=== PATIENT | female | born 1945 | race Caucasian/White ===

== ENCOUNTER 2022-11-15 16:14 | Inpatient (IN) | payer MEDICARE ==
[~2022-11-15] VITALS: Ht 160 cm; Wt 106.1 kg
[~2022-11-15 16:14] MED LIST: ACETAMINOPHEN325 M1 PO; ASPIR 8181 MG PO; ATORVASTATIN CA20 MG PO; CARAFATE1 GM PO; DOXAZOSIN MESYLA2 MG PO; ELIQUIS5 MG PO; FAMOTIDINE40 MG PO; FLONASE ALLERG9.9 ML INH; FUROSEMIDE40 MG PO; HEMOCYTE PLUS1 EACH PO; HYDROCHLOROTHIA25 MG; HYZAAR 100-251 EACH PO; ISOSORBIDE MONO30 MG PO; LASIX40 MG PO; LEVOCETIRIZINE D5 MG PO; LEVOTHYROXINE88 MCG PO; LOSARTAN POTAS100 MG PO; MAGOX 400400 MG PO; MAXZIDE 37.5 M1 EACH PO; METOPROLOL SUCC50 MG PO; PANTOPRAZOLE SO40 MG PO; SENOKOT-S TABL1 EACH PO; SYNTHROID125 MCG PO; TOPROL XL100 MG PO; VITAMIN D350 MCG PO
[2022-11-15] MEDS ORDERED: ALBUTEROL/IPRATROPIUM 3 ML NEB NEB ONE (17:00)
[2022-11-15 17:14] LABS: BASOPHILS # (AUTO) 0.1 (0.0-0.1); BASOPHILS % 0.3 % (0.0-1.0); EOSINOPHILS # (AUTO) 0.1 (0.0-0.4); EOSINOPHILS % 0.4 % (0.0-6.0); HEMOGLOBIN 10.8 g/dL (12.0-16.0); LYMPHOCYTES # (AUTO) 0.5 (1.0-3.2); LYMPHOCYTES % 1.9 % (18.0-39.1); MEAN CORPUSCULAR HEMOGLOBIN 25.9 pg (28-32); MEAN CORPUSCULAR HGB CONC 30.9 g/dL (31-35); MEAN CORPUSCULAR VOLUME 83.9 fL (81-99); MONOCYTES # (AUTO) 0.8 (0.2-0.8); NEUTROPHILS # (AUTO) 25.1 (2.1-6.9); NEUTROPHILS % 93.9 % (38.7-80.0); PLATELET COUNT 335 x10e3/uL (140-360); RED BLOOD COUNT 4.17 x10e6/uL (3.6-5.1); RED CELL DISTRIBUTION WIDTH 19.5 % (11.7-14.4)
[2022-11-15 17:49] LABS: ALBUMIN 2.5 g/dL (3.5-5.0); ALBUMIN/GLOBULIN RATIO 0.5 (0.8-2.0); ANION GAP 22.3 mmol/L (8-16); CREATININE, SERUM 1.41 mg/dL (0.57-1.11); POTASSIUM 4.3 mmol/L (3.5-5.1)
[2022-11-15 17:50] LABS: CALCIUM 9.7 mg/dL (8.4-10.2)
[2022-11-15] MEDS ORDERED: SODIUM CHLORIDE 0.9% 1000ML 500 ML IV ONE (19:00)
[2022-11-15] MEDS ORDERED: SODIUM CHLORIDE FLUSH 10 ML SYR INJ PRN (19:15)
[2022-11-15] MEDS ORDERED: METHYLPREDNISOLONE SOD SUCC 125 MG/2ML VIAL IV SCH (19:15)
[2022-11-15] MEDS ORDERED: ONDANSETRON HCL INJ 2MG/ML 2ML 2 MG/ML VIAL IV PRN (19:15)
[2022-11-15] MEDS ORDERED: DEXTROSE 50% SYRINGE 50 ML IV PRN (19:30)
[2022-11-15] MEDS ORDERED: IBUPROFEN 600 MG TAB PO STA (19:53)
[2022-11-15] MEDS ORDERED: PANTOPRAZOLE SOD 40 MG TABEC PO ONE (20:30)
[2022-11-15 20:53] LABS: ABG PH 7.43 (7.35-7.45)
[2022-11-15] MEDS: INSULIN REGULAR, HUMAN 100 UNIT/1 ML SQ SCH (20:53)
[2022-11-15 20:54] LABS: ABG HCO3 26 mmol/L (22-26); ABG PCO2 39 mmHg (35-45); ABG PO2 67 mmHg (80-105); ABG TCO2 27
[2022-11-15] MEDS: ATORVASTATIN 40 MG TAB PO SCH (21:00)
[2022-11-15] MEDS ORDERED: IPRATROPIUM BROMIDE 0.02% 2.5 ML NEB NEB SCH (21:00)
[2022-11-15] MEDS ORDERED: ALBUTEROL/IPRATROPIUM 3 ML NEB NEB SCH (23:00)
[2022-11-15 23:48] LABS: CLARITY,URINE CLOUDY (CLEAR); COLOR,URINE AMBER (YELLOW); KETONES,URINE TRACE (NEGATIVE); LEUKOCYTE ESTERASE ,URINE SMALL (NEGATIVE); NITRITE,URINE POSITIVE (NEGATIVE); PROTEIN,URINE DIPSTICK 2+ (NEGATIVE); URINE UROBILINOGEN 1 mg/dL (0.2 - 1)
[2022-11-15 23:53] LABS: BACTERIA,URINE MODERATE /HPF; EPITHELIAL CELLS,URINE MANY /LPF
[2022-11-16] MEDS: ALBUTEROL SULF 0.083% NEB SOLN 3 ML NEB NEB SCH ×7 (00:07→23:00)
[2022-11-16] MEDS: IPRATROPIUM BROMIDE 0.02% 2.5 ML NEB NEB SCH ×7 (00:07→23:00)
[2022-11-16] MEDS ORDERED: Vancomycin IV 0.75 GM in SODIUM CHLORIDE 0.9% 250ML 250 ML IV ONE (01:00)
[2022-11-16 05:49] LABS: BASOPHILS # (AUTO) 0.1 (0.0-0.1); BASOPHILS % 0.3 % (0.0-1.0); HEMATOCRIT 32.9 % (34.2-44.1); HEMOGLOBIN 10.2 g/dL (12.0-16.0); LYMPHOCYTES # (AUTO) 0.5 (1.0-3.2); MEAN CORPUSCULAR HEMOGLOBIN 25.6 pg (28-32); MEAN CORPUSCULAR VOLUME 82.7 fL (81-99); MONOCYTES # (AUTO) 0.4 (0.2-0.8); MONOCYTES % 1.7 % (4.4-11.3); NEUTROPHILS # (AUTO) 22.4 (2.1-6.9); NEUTROPHILS % 95.4 % (38.7-80.0); PLATELET COUNT 316 x10e3/uL (140-360); RED BLOOD COUNT 3.98 x10e6/uL (3.6-5.1); RED CELL DISTRIBUTION WIDTH 19.4 % (11.7-14.4)
[2022-11-16] MEDS: METHYLPREDNISOLONE SOD SUCC 40 MG/ML VIAL 1ML IV SCH ×2 (05:54→17:28)
[2022-11-16] MEDS ORDERED: METHYLPREDNISOLONE SOD SUCC 125 MG/2ML VIAL IV SCH (06:00)
[2022-11-16 06:14] LABS: ANION GAP 20.9 mmol/L (8-16); CALCIUM 9.6 mg/dL (8.4-10.2); CREATININE, SERUM 1.46 mg/dL (0.57-1.11); POTASSIUM 3.9 mmol/L (3.5-5.1)
[2022-11-16] MEDS ORDERED: PANTOPRAZOLE SOD 40 MG TABEC PO SCH (07:30)
[2022-11-16] MEDS: INSULIN REGULAR, HUMAN 100 UNIT/1 ML SQ SCH ×4 (07:30→22:34)
[2022-11-16 07:59] LABS: ANISOCYTOSIS MODERATE; BAND NEUTROPHILS % (MANUAL) 7 %; HYPOCHROMASIA SLIGHT; LYMPHOCYTES % (MANUAL) 1 % (19-48); MONOCYTES % (MANUAL) 1 % (3.4-9.0); NEUTROPHILS % (MANUAL) 91 % (40-74); PLATELET ESTIMATE ADEQUATE; PLATELET MORPHOLOGY COMMENT NORMAL; RBC MORPHOLOGY COMMENT ABNORMAL
[2022-11-16] MEDS: PIPERACILLIN/TAZOBACTAM 4.5 GM in SODIUM CHLORIDE 0.9% 100 ML IV SCH ×2 (09:06→22:14)
[2022-11-16] MEDS: MAGNESIUM OXIDE 400 MG TAB PO SCH ×2 (09:08→17:27)
[2022-11-16] MEDS ORDERED: ELIQUIS5 MG PO (09:10)
[2022-11-16] MEDS: ISOSORBIDE MONONITRATE 30 MG TAB CR PO SCH (09:12)
[2022-11-16] MEDS: DOXAZOSIN MESYLATE 2 MG TAB PO SCH (09:12)
[2022-11-16] MEDS: FUROSEMIDE 40 MG TAB PO SCH (09:13)
[2022-11-16] MEDS: METOPROLOL SUCCINATE 25 MG TAB XL PO SCH ×2 (09:14→17:27)
[2022-11-16] MEDS: LEVOTHYROXINE SODIUM 100 MCG TAB PO SCH (09:14)
[2022-11-16] MEDS: PANTOPRAZOLE SOD 40 MG TABEC PO SCH ×2 (09:14→17:26)
[2022-11-16] MEDS ORDERED: Vancomycin IV 500 MG in SODIUM CHLORIDE 0.9% 100 ML IV SCH (14:00)
[2022-11-16 15:51] VITALS: BP 134/70
[2022-11-16] MEDS ORDERED: SODIUM CHLORIDE 0.9% 0 ML ONE (15:58)
[2022-11-16] MEDS ORDERED: METOPROLOL TARTRATE INJ 1 MG/ML VIAL IV ONE (16:00)
[2022-11-16 16:20] VITALS: BP 134/70
[2022-11-16] MEDS: ENOXAPARIN 30 MG/0.3 ML SYR SC SCH (17:28)
[2022-11-16] MEDS: Vancomycin IV 500 MG in SODIUM CHLORIDE 0.9% 100 ML IV SCH (17:40)
[2022-11-16 18:00] VITALS: BP 134/70
[2022-11-16 20:00] VITALS: BP 118/70
[2022-11-16 21:00] VITALS: BP 118/70
[2022-11-16] MEDS: ATORVASTATIN 40 MG TAB PO SCH (22:15)
[2022-11-17] VITALS (8 sets, daily range): BP systolic 108–133; BP diastolic 56–62
[2022-11-17] MEDS: ALBUTEROL SULF 0.083% NEB SOLN 3 ML NEB NEB SCH ×6 (03:25→23:20)
[2022-11-17] MEDS: IPRATROPIUM BROMIDE 0.02% 2.5 ML NEB NEB SCH ×6 (03:25→23:25)
[2022-11-17] MEDS: METHYLPREDNISOLONE SOD SUCC 40 MG/ML VIAL 1ML IV SCH (05:18)
[2022-11-17] MEDS: Vancomycin IV 500 MG in SODIUM CHLORIDE 0.9% 100 ML IV SCH ×2 (05:22→18:34)
[2022-11-17 06:07] LABS: BASOPHILS % 0.2 % (0.0-1.0); EOSINOPHILS % 0.2 % (0.0-6.0); HEMATOCRIT 27.6 % (34.2-44.1); HEMOGLOBIN 8.9 g/dL (12.0-16.0); LYMPHOCYTES # (AUTO) 0.6 (1.0-3.2); LYMPHOCYTES % 2.8 % (18.0-39.1); MEAN CORPUSCULAR HEMOGLOBIN 25.6 pg (28-32); MEAN CORPUSCULAR HGB CONC 32.2 g/dL (31-35); MEAN CORPUSCULAR VOLUME 79.3 fL (81-99); MONOCYTES # (AUTO) 0.7 (0.2-0.8); MONOCYTES % 3.3 % (4.4-11.3); NEUTROPHILS # (AUTO) 18.3 (2.1-6.9); NEUTROPHILS % 91.8 % (38.7-80.0); PLATELET COUNT 284 x10e3/uL (140-360); RED BLOOD COUNT 3.48 x10e6/uL (3.6-5.1)
[2022-11-17 06:51] LABS: ALBUMIN/GLOBULIN RATIO 0.5 (0.8-2.0); ANION GAP 15.2 mmol/L (8-16); CALCIUM 9.2 mg/dL (8.4-10.2); CREATININE, SERUM 1.18 mg/dL (0.57-1.11); POTASSIUM 3.2 mmol/L (3.5-5.1)
[2022-11-17] MEDS: INSULIN REGULAR, HUMAN 100 UNIT/1 ML SQ SCH ×4 (07:30→21:53)
[2022-11-17 08:17] LABS: ANISOCYTOSIS MODERATE; BAND NEUTROPHILS % (MANUAL) 1 %; HYPOCHROMASIA SLIGHT; LYMPHOCYTES % (MANUAL) 1 % (19-48); METAMYELOCYTES % (MANUAL) 2 % (0-0); MONOCYTES % (MANUAL) 2 % (3.4-9.0); MYELOCYTES % (MANUAL) 1 % (0-0); NEUTROPHILS % (MANUAL) 92 % (40-74); PLATELET ESTIMATE ADEQUATE; PLATELET MORPHOLOGY COMMENT NORMAL; RBC MORPHOLOGY COMMENT ABNORMAL
[2022-11-17] MEDS: PANTOPRAZOLE SOD 40 MG TABEC PO SCH ×2 (10:10→18:35)
[2022-11-17] MEDS: PIPERACILLIN/TAZOBACTAM 4.5 GM in SODIUM CHLORIDE 0.9% 100 ML IV SCH ×2 (10:10→21:17)
[2022-11-17] MEDS: ISOSORBIDE MONONITRATE 30 MG TAB CR PO SCH (10:10)
[2022-11-17] MEDS: LEVOTHYROXINE SODIUM 100 MCG TAB PO SCH (10:10)
[2022-11-17] MEDS: FUROSEMIDE 40 MG TAB PO SCH (10:11)
[2022-11-17] MEDS: DOXAZOSIN MESYLATE 2 MG TAB PO SCH (10:11)
[2022-11-17] MEDS: METOPROLOL SUCCINATE 25 MG TAB XL PO SCH ×2 (10:11→18:35)
[2022-11-17 10:12] LABS: % IRON SATURATION 5 % (15-50); IRON 12 ug/dL (50-170); TOTAL IRON BINDING CAPACITY 246 ug/dL (261-478); TRANSFERRIN 176 mg/dL (180-382)
[2022-11-17] MEDS: MAGNESIUM OXIDE 400 MG TAB PO SCH ×2 (10:12→18:35)
[2022-11-17] MEDS: NYSTATIN SUSPENSION 5 ML UDC PO SCH ×3 (13:25→21:09)
[2022-11-17] MEDS ORDERED: ONDANSETRON HCL 4 MG ORAL DISINTEGRATING TAB PO PRN (13:45)
[2022-11-17] MEDS ORDERED: FUROSEMIDE INJ 10 MG/ML 2 ML VIAL IV ONE (16:00)
[2022-11-17] MEDS: IRON SUCROSE 100 MG in SODIUM CHLORIDE 0.9% 100 ML IV SCH (18:34)
[2022-11-17] MEDS: ENOXAPARIN 30 MG/0.3 ML SYR SC SCH (18:36)
[2022-11-17] MEDS ORDERED: FUROSEMIDE INJ 10 MG/ML 4 ML VIAL IV ONE (19:30)
[2022-11-17] MEDS: ATORVASTATIN 40 MG TAB PO SCH (21:09)
[2022-11-17] MEDS: MAALOX/LIDOCAINE/BENADRYL/NYST 30 ML BTL PO PRN (21:14)
[2022-11-17] MEDS ORDERED: SODIUM CHLORIDE 0.9% 250ML 250 ML ONE (21:54)
[2022-11-18] VITALS (7 sets, daily range): BP systolic 114–149; BP diastolic 53–80
[2022-11-18] MEDS: ALBUTEROL SULF 0.083% NEB SOLN 3 ML NEB NEB SCH ×6 (03:20→23:30)
[2022-11-18] MEDS: IPRATROPIUM BROMIDE 0.02% 2.5 ML NEB NEB SCH ×6 (03:20→23:30)
[2022-11-18] MEDS: NYSTATIN SUSPENSION 5 ML UDC PO SCH ×5 (05:39→20:53)
[2022-11-18] MEDS: Vancomycin IV 500 MG in SODIUM CHLORIDE 0.9% 100 ML IV SCH ×2 (05:41→17:55)
[2022-11-18 06:34] LABS: BASOPHILS # (AUTO) 0.2 (0.0-0.1); BASOPHILS % 0.9 % (0.0-1.0); EOSINOPHILS # (AUTO) 0.1 (0.0-0.4); EOSINOPHILS % 0.3 % (0.0-6.0); HEMATOCRIT 29.3 % (34.2-44.1); HEMOGLOBIN 9.3 g/dL (12.0-16.0); LYMPHOCYTES # (AUTO) 0.4 (1.0-3.2); LYMPHOCYTES % 2.1 % (18.0-39.1); MEAN CORPUSCULAR HEMOGLOBIN 25.7 pg (28-32); MEAN CORPUSCULAR HGB CONC 31.7 g/dL (31-35); MEAN CORPUSCULAR VOLUME 80.9 fL (81-99); MONOCYTES # (AUTO) 0.9 (0.2-0.8); MONOCYTES % 4.2 % (4.4-11.3); NEUTROPHILS # (AUTO) 17.6 (2.1-6.9); NEUTROPHILS % 85.5 % (38.7-80.0); PLATELET COUNT 254 x10e3/uL (140-360); RED BLOOD COUNT 3.62 x10e6/uL (3.6-5.1); RED CELL DISTRIBUTION WIDTH 19.1 % (11.7-14.4)
[2022-11-18 07:21] LABS: ALBUMIN 2.1 g/dL (3.5-5.0); ALBUMIN/GLOBULIN RATIO 0.5 (0.8-2.0); ANION GAP 16.5 mmol/L (8-16); CALCIUM 8.9 mg/dL (8.4-10.2); MAGNESIUM 1.6 MG/DL (1.3-2.1)
[2022-11-18] MEDS: INSULIN REGULAR, HUMAN 100 UNIT/1 ML SQ SCH ×4 (07:30→21:15)
[2022-11-18 07:31] LABS: POTASSIUM 2.5 mmol/L (3.5-5.1)
[2022-11-18 08:48] LABS: LYMPHOCYTES % (MANUAL) 2 % (19-48); MONOCYTES % (MANUAL) 2 % (3.4-9.0); MYELOCYTES % (MANUAL) 2 % (0-0); NEUTROPHILS % (MANUAL) 94 % (40-74); PLATELET ESTIMATE ADEQUATE; PLATELET MORPHOLOGY COMMENT NORMAL; RBC MORPHOLOGY COMMENT NORMAL
[2022-11-18] MEDS ORDERED: POTASSIUM CHLORIDE 20 MEQ TAB CR PO ONE (09:00)
[2022-11-18 09:02] LABS: ABG PCO2 38 mmHg (35-45); ABG PH 7.56 (7.35-7.45)
[2022-11-18 09:03] LABS: ABG HCO3 34 mmol/L (22-26); ABG PO2 66 mmHg (80-105); ABG TCO2 35
[2022-11-18] MEDS ORDERED: MAGNESIUM SULFATE 2GM/50ML 50 ML IV ONE (10:00)
[2022-11-18] MEDS: METHYLPREDNISOLONE SOD SUCC 40 MG/ML VIAL 1ML IV SCH (10:55)
[2022-11-18] MEDS: FUROSEMIDE INJ 10 MG/ML 4 ML VIAL IV SCH ×2 (10:56→17:53)
[2022-11-18] MEDS: PIPERACILLIN/TAZOBACTAM 4.5 GM in SODIUM CHLORIDE 0.9% 100 ML IV SCH ×2 (10:58→23:00)
[2022-11-18] MEDS: POTASSIUM CHLORIDE 20MEQ/100ML 100 ML IV SCH ×2 (10:58→11:10)
[2022-11-18] MEDS: LEVOTHYROXINE SODIUM 100 MCG TAB PO SCH (10:59)
[2022-11-18] MEDS: ISOSORBIDE MONONITRATE 30 MG TAB CR PO SCH (10:59)
[2022-11-18] MEDS: METOPROLOL SUCCINATE 25 MG TAB XL PO SCH (11:00)
[2022-11-18] MEDS: PANTOPRAZOLE SOD 40 MG TABEC PO SCH ×2 (11:00→17:53)
[2022-11-18] MEDS: MAGNESIUM OXIDE 400 MG TAB PO SCH ×2 (11:00→17:53)
[2022-11-18] MEDS: DOXAZOSIN MESYLATE 2 MG TAB PO SCH (11:01)
[2022-11-18 17:31] LABS: ANION GAP 17.3 mmol/L (8-16); CALCIUM 9.1 mg/dL (8.4-10.2); CREATININE, SERUM 0.98 mg/dL (0.57-1.11); POTASSIUM 3.3 mmol/L (3.5-5.1)
[2022-11-18] MEDS: ENOXAPARIN 30 MG/0.3 ML SYR SC SCH (17:53)
[2022-11-18] MEDS: IRON SUCROSE 100 MG in SODIUM CHLORIDE 0.9% 100 ML IV SCH (17:54)
[2022-11-18] MEDS ORDERED: SODIUM CHLORIDE 0.9% 250ML 250 ML ONE (19:14)
[2022-11-18] MEDS: ATORVASTATIN 40 MG TAB PO SCH (20:53)
[2022-11-19] MEDS: IPRATROPIUM BROMIDE 0.02% 2.5 ML NEB NEB SCH ×6 (03:30→23:00)
[2022-11-19] MEDS: ALBUTEROL SULF 0.083% NEB SOLN 3 ML NEB NEB SCH ×6 (03:30→23:00)
[2022-11-19] MEDS: NYSTATIN SUSPENSION 5 ML UDC PO SCH ×5 (06:09→21:40)
[2022-11-19] MEDS: Vancomycin IV 500 MG in SODIUM CHLORIDE 0.9% 100 ML IV SCH (06:09)
[2022-11-19 07:22] LABS: ANION GAP 14.3 mmol/L (8-16); CALCIUM 8.8 mg/dL (8.4-10.2); CREATININE, SERUM 0.96 mg/dL (0.57-1.11); POTASSIUM 3.3 mmol/L (3.5-5.1)
[2022-11-19] MEDS: INSULIN REGULAR, HUMAN 100 UNIT/1 ML SQ SCH ×4 (07:30→21:37)
[2022-11-19] MEDS ORDERED: POTASSIUM CHLORIDE 20 MEQ TAB CR PO ONE (07:45)
[2022-11-19 08:00] VITALS: BP 145/70
[2022-11-19 08:24] VITALS: BP 139/75
[2022-11-19] MEDS: FUROSEMIDE INJ 10 MG/ML 4 ML VIAL IV SCH ×2 (08:43→17:25)
[2022-11-19] MEDS: METHYLPREDNISOLONE SOD SUCC 40 MG/ML VIAL 1ML IV SCH (08:44)
[2022-11-19] MEDS: APIXABAN 5 MG TABLET PO SCH ×2 (08:45→17:24)
[2022-11-19] MEDS: MAGNESIUM OXIDE 400 MG TAB PO SCH ×2 (08:45→17:24)
[2022-11-19] MEDS: LEVOTHYROXINE SODIUM 100 MCG TAB PO SCH (08:45)
[2022-11-19] MEDS: METOPROLOL SUCCINATE 25 MG TAB XL PO SCH ×2 (08:46→21:40)
[2022-11-19] MEDS: PANTOPRAZOLE SOD 40 MG TABEC PO SCH ×2 (08:46→17:24)
[2022-11-19] MEDS: ISOSORBIDE MONONITRATE 30 MG TAB CR PO SCH (08:47)
[2022-11-19] MEDS: DOXAZOSIN MESYLATE 2 MG TAB PO SCH (08:47)
[2022-11-19] MEDS: PIPERACILLIN/TAZOBACTAM 4.5 GM in SODIUM CHLORIDE 0.9% 100 ML IV SCH ×2 (09:00→21:40)
[2022-11-19 12:01] VITALS: BP 145/70
[2022-11-19] MEDS: ACETAMINOPHEN 325 MG TAB PO PRN (12:20)
[2022-11-19 16:30] VITALS: BP 126/74
[2022-11-19] MEDS: IRON SUCROSE 100 MG in SODIUM CHLORIDE 0.9% 100 ML IV SCH (17:25)
[2022-11-19 20:55] VITALS: BP 115/55
[2022-11-19 21:00] VITALS: BP 115/55
[2022-11-19] MEDS: ATORVASTATIN 40 MG TAB PO SCH (21:40)
[2022-11-19] MEDS ORDERED: SODIUM CHLORIDE 0.9% 250ML 250 ML ONE (21:45)
[2022-11-20] VITALS (8 sets, daily range): BP systolic 108–144; BP diastolic 63–84
[2022-11-20] MEDS: ALBUTEROL SULF 0.083% NEB SOLN 3 ML NEB NEB SCH ×6 (03:00→22:00)
[2022-11-20] MEDS: IPRATROPIUM BROMIDE 0.02% 2.5 ML NEB NEB SCH ×6 (03:00→22:00)
[2022-11-20] MEDS: NYSTATIN SUSPENSION 5 ML UDC PO SCH ×5 (05:20→21:12)
[2022-11-20 07:12] LABS: BASOPHILS # (AUTO) 0.2 (0.0-0.1); BASOPHILS % 0.9 % (0.0-1.0); HEMATOCRIT 31.3 % (34.2-44.1); HEMOGLOBIN 9.9 g/dL (12.0-16.0); LYMPHOCYTES # (AUTO) 0.8 (1.0-3.2); LYMPHOCYTES % 3.9 % (18.0-39.1); MEAN CORPUSCULAR HEMOGLOBIN 25.6 pg (28-32); MEAN CORPUSCULAR HGB CONC 31.6 g/dL (31-35); MEAN CORPUSCULAR VOLUME 80.9 fL (81-99); MONOCYTES # (AUTO) 0.5 (0.2-0.8); MONOCYTES % 2.5 % (4.4-11.3); NEUTROPHILS # (AUTO) 16.1 (2.1-6.9); NEUTROPHILS % 79.9 % (38.7-80.0); PLATELET COUNT 273 x10e3/uL (140-360); RED BLOOD COUNT 3.87 x10e6/uL (3.6-5.1); RED CELL DISTRIBUTION WIDTH 19.1 % (11.7-14.4)
[2022-11-20] MEDS: INSULIN REGULAR, HUMAN 100 UNIT/1 ML SQ SCH ×4 (07:30→21:00)
[2022-11-20 07:40] LABS: ANION GAP 17.3 mmol/L (8-16); CALCIUM 9.3 mg/dL (8.4-10.2); CREATININE, SERUM 0.99 mg/dL (0.57-1.11); POTASSIUM 3.3 mmol/L (3.5-5.1)
[2022-11-20] MEDS: DOXAZOSIN MESYLATE 2 MG TAB PO SCH (09:58)
[2022-11-20] MEDS: APIXABAN 5 MG TABLET PO SCH ×2 (09:58→16:38)
[2022-11-20] MEDS: PANTOPRAZOLE SOD 40 MG TABEC PO SCH ×2 (09:58→16:38)
[2022-11-20] MEDS: METOPROLOL SUCCINATE 25 MG TAB XL PO SCH ×2 (09:58→21:13)
[2022-11-20] MEDS: MAGNESIUM OXIDE 400 MG TAB PO SCH ×2 (09:59→16:48)
[2022-11-20] MEDS: ISOSORBIDE MONONITRATE 30 MG TAB CR PO SCH (09:59)
[2022-11-20] MEDS: FUROSEMIDE INJ 10 MG/ML 4 ML VIAL IV SCH ×2 (09:59→16:38)
[2022-11-20] MEDS: LEVOTHYROXINE SODIUM 100 MCG TAB PO SCH (10:03)
[2022-11-20 11:50] LABS: LYMPHOCYTES % (MANUAL) 1 % (19-48); METAMYELOCYTES % (MANUAL) 2 % (0-0); MONOCYTES % (MANUAL) 5 % (3.4-9.0); MYELOCYTES % (MANUAL) 1 % (0-0); NEUTROPHILS % (MANUAL) 91 % (40-74); PLATELET ESTIMATE ADEQUATE; PLATELET MORPHOLOGY COMMENT NORMAL; RBC MORPHOLOGY COMMENT NORMAL
[2022-11-20] MEDS: PIPERACILLIN/TAZOBACTAM 4.5 GM in SODIUM CHLORIDE 0.9% 100 ML IV SCH ×2 (11:54→21:12)
[2022-11-20] MEDS: MAALOX/LIDOCAINE/BENADRYL/NYST 30 ML BTL PO PRN (16:46)
[2022-11-20] MEDS: POTASSIUM CHLORIDE 20 MEQ TAB CR PO PRN (16:48)
[2022-11-20] MEDS: TRAMADOL HCL 50 MG TAB PO PRN (18:47)
[2022-11-20] MEDS: ATORVASTATIN 40 MG TAB PO SCH (21:12)
[2022-11-21] VITALS (7 sets, daily range): BP systolic 106–136; BP diastolic 47–62
[2022-11-21] MEDS: TRAMADOL HCL 50 MG TAB PO PRN ×2 (01:00→20:49)
[2022-11-21] MEDS: IPRATROPIUM BROMIDE 0.02% 2.5 ML NEB NEB SCH ×6 (02:30→23:25)
[2022-11-21] MEDS: ALBUTEROL SULF 0.083% NEB SOLN 3 ML NEB NEB SCH ×6 (02:30→23:25)
[2022-11-21] MEDS: NYSTATIN SUSPENSION 5 ML UDC PO SCH ×5 (05:29→20:47)
[2022-11-21] MEDS: LEVOTHYROXINE SODIUM 100 MCG TAB PO SCH (05:29)
[2022-11-21 06:24] LABS: BASOPHILS # (AUTO) 0.1 (0.0-0.1); BASOPHILS % 0.6 % (0.0-1.0); EOSINOPHILS # (AUTO) 0.1 (0.0-0.4); EOSINOPHILS % 0.5 % (0.0-6.0); HEMATOCRIT 29.6 % (34.2-44.1); LYMPHOCYTES # (AUTO) 0.9 (1.0-3.2); LYMPHOCYTES % 5.2 % (18.0-39.1); MEAN CORPUSCULAR HEMOGLOBIN 25.1 pg (28-32); MEAN CORPUSCULAR HGB CONC 30.4 g/dL (31-35); MEAN CORPUSCULAR VOLUME 82.5 fL (81-99); MONOCYTES # (AUTO) 0.4 (0.2-0.8); MONOCYTES % 2.3 % (4.4-11.3); NEUTROPHILS # (AUTO) 12.8 (2.1-6.9); NEUTROPHILS % 77.9 % (38.7-80.0); PLATELET COUNT 252 x10e3/uL (140-360); RED BLOOD COUNT 3.59 x10e6/uL (3.6-5.1); RED CELL DISTRIBUTION WIDTH 19.3 % (11.7-14.4)
[2022-11-21 06:41] LABS: ALBUMIN 2.1 g/dL (3.5-5.0); ALBUMIN/GLOBULIN RATIO 0.5 (0.8-2.0); ANION GAP 15.2 mmol/L (8-16); CALCIUM 8.9 mg/dL (8.4-10.2); CREATININE, SERUM 0.93 mg/dL (0.57-1.11); POTASSIUM 3.2 mmol/L (3.5-5.1)
[2022-11-21] MEDS: INSULIN REGULAR, HUMAN 100 UNIT/1 ML SQ SCH ×4 (07:30→21:18)
[2022-11-21] MEDS: METOPROLOL SUCCINATE 25 MG TAB XL PO SCH ×2 (08:47→20:48)
[2022-11-21] MEDS: FUROSEMIDE INJ 10 MG/ML 4 ML VIAL IV SCH ×2 (08:47→16:29)
[2022-11-21] MEDS: MAGNESIUM OXIDE 400 MG TAB PO SCH ×2 (08:48→16:29)
[2022-11-21] MEDS: ISOSORBIDE MONONITRATE 30 MG TAB CR PO SCH (08:48)
[2022-11-21] MEDS: DOXAZOSIN MESYLATE 2 MG TAB PO SCH (08:48)
[2022-11-21] MEDS: PANTOPRAZOLE SOD 40 MG TABEC PO SCH ×2 (08:48→16:30)
[2022-11-21] MEDS: APIXABAN 5 MG TABLET PO SCH ×2 (08:50→16:41)
[2022-11-21] MEDS: PIPERACILLIN/TAZOBACTAM 4.5 GM in SODIUM CHLORIDE 0.9% 100 ML IV SCH ×2 (09:00→20:49)
[2022-11-21] MEDS ORDERED: POTASSIUM CHLORIDE 20 MEQ TAB CR PO ONE (10:00)
[2022-11-21 11:06] LABS: EOSINOPHILS % (MANUAL) 1 % (0-7); METAMYELOCYTES % (MANUAL) 3 % (0-0); MONOCYTES % (MANUAL) 4 % (3.4-9.0); MYELOCYTES % (MANUAL) 1 % (0-0); NEUTROPHILS % (MANUAL) 90 % (40-74)
[2022-11-21 11:07] LABS: PLATELET ESTIMATE ADEQUATE; PLATELET MORPHOLOGY COMMENT NORMAL
[2022-11-21] MEDS: POTASSIUM CHLORIDE 20 MEQ TAB CR PO PRN (16:30)
[2022-11-21] MEDS: ATORVASTATIN 40 MG TAB PO SCH (20:47)
[2022-11-22] VITALS (13 sets, daily range): BP systolic 97–133; BP diastolic 52–74
[2022-11-22] MEDS: IPRATROPIUM BROMIDE 0.02% 2.5 ML NEB NEB SCH ×6 (03:10→23:00)
[2022-11-22] MEDS: ALBUTEROL SULF 0.083% NEB SOLN 3 ML NEB NEB SCH ×6 (03:10→23:00)
[2022-11-22] MEDS: NYSTATIN SUSPENSION 5 ML UDC PO SCH ×5 (05:00→21:44)
[2022-11-22] MEDS: LEVOTHYROXINE SODIUM 100 MCG TAB PO SCH (06:00)
[2022-11-22 06:05] LABS: BASOPHILS % 0.3 % (0.0-1.0); EOSINOPHILS # (AUTO) 0.4 (0.0-0.4); EOSINOPHILS % 2.6 % (0.0-6.0); HEMATOCRIT 30.1 % (34.2-44.1); HEMOGLOBIN 9.4 g/dL (12.0-16.0); LYMPHOCYTES # (AUTO) 0.8 (1.0-3.2); LYMPHOCYTES % 5.9 % (18.0-39.1); MEAN CORPUSCULAR HEMOGLOBIN 25.2 pg (28-32); MEAN CORPUSCULAR HGB CONC 31.2 g/dL (31-35); MEAN CORPUSCULAR VOLUME 80.7 fL (81-99); MONOCYTES # (AUTO) 0.3 (0.2-0.8); MONOCYTES % 2.4 % (4.4-11.3); NEUTROPHILS # (AUTO) 10.8 (2.1-6.9); PLATELET COUNT 240 x10e3/uL (140-360); RED BLOOD COUNT 3.73 x10e6/uL (3.6-5.1); RED CELL DISTRIBUTION WIDTH 19.7 % (11.7-14.4)
[2022-11-22 06:53] LABS: ANION GAP 13.3 mmol/L (8-16); CALCIUM 8.5 mg/dL (8.4-10.2); CREATININE, SERUM 0.9 mg/dL (0.57-1.11); POTASSIUM 3.3 mmol/L (3.5-5.1)
[2022-11-22] MEDS: INSULIN REGULAR, HUMAN 100 UNIT/1 ML SQ SCH ×4 (07:30→21:00)
[2022-11-22 07:38] LABS: ALBUMIN/GLOBULIN RATIO 0.6 (0.8-2.0)
[2022-11-22] MEDS: ISOSORBIDE MONONITRATE 30 MG TAB CR PO SCH (10:00)
[2022-11-22] MEDS: METOPROLOL SUCCINATE 25 MG TAB XL PO SCH ×2 (10:01→21:43)
[2022-11-22] MEDS: DOXAZOSIN MESYLATE 2 MG TAB PO SCH (10:01)
[2022-11-22] MEDS: MAGNESIUM OXIDE 400 MG TAB PO SCH ×2 (10:01→17:17)
[2022-11-22] MEDS: PANTOPRAZOLE SOD 40 MG TABEC PO SCH ×2 (10:02→17:17)
[2022-11-22] MEDS: FUROSEMIDE INJ 10 MG/ML 4 ML VIAL IV SCH ×2 (10:02→17:17)
[2022-11-22] MEDS ORDERED: SODIUM CHLORIDE 0.9% 1000ML 1,000 ML ONE (11:18)
[2022-11-22] MEDS ORDERED: BENZOCAINE 20% SPR 60 ML CAN ONE (11:18)
[2022-11-22] MEDS ORDERED: MIDAZOLAM HCL 2 MG/2 ML VIAL ONE (13:33)
[2022-11-22] MEDS ORDERED: FENTANYL CITRATE/PF 100MCG/2 ML INJ ONE (13:33)
[2022-11-22] MEDS: CEFTRIAXONE 2 GM in SODIUM CHLORIDE 0.9% 100 ML IV SCH (17:31)
[2022-11-22] MEDS: ATORVASTATIN 40 MG TAB PO SCH (21:44)
[2022-11-23] VITALS (8 sets, daily range): BP systolic 102–132; BP diastolic 54–70
[2022-11-23] MEDS: ALBUTEROL SULF 0.083% NEB SOLN 3 ML NEB NEB SCH ×6 (03:00→22:55)
[2022-11-23] MEDS: IPRATROPIUM BROMIDE 0.02% 2.5 ML NEB NEB SCH ×6 (03:00→22:55)
[2022-11-23] MEDS: LEVOTHYROXINE SODIUM 100 MCG TAB PO SCH (04:09)
[2022-11-23] MEDS: NYSTATIN SUSPENSION 5 ML UDC PO SCH ×5 (04:09→20:46)
[2022-11-23] MEDS: TRAMADOL HCL 50 MG TAB PO PRN ×2 (04:17→20:48)
[2022-11-23 06:41] LABS: BASOPHILS % 0.2 % (0.0-1.0); EOSINOPHILS # (AUTO) 0.3 (0.0-0.4); HEMATOCRIT 32.3 % (34.2-44.1); HEMOGLOBIN 10.1 g/dL (12.0-16.0); LYMPHOCYTES # (AUTO) 0.6 (1.0-3.2); MEAN CORPUSCULAR HEMOGLOBIN 25.5 pg (28-32); MEAN CORPUSCULAR HGB CONC 31.3 g/dL (31-35); MEAN CORPUSCULAR VOLUME 81.6 fL (81-99); MONOCYTES # (AUTO) 0.4 (0.2-0.8); MONOCYTES % 2.4 % (4.4-11.3); NEUTROPHILS # (AUTO) 13.7 (2.1-6.9); NEUTROPHILS % 85.1 % (38.7-80.0); PLATELET COUNT 318 x10e3/uL (140-360); RED BLOOD COUNT 3.96 x10e6/uL (3.6-5.1); RED CELL DISTRIBUTION WIDTH 20.3 % (11.7-14.4)
[2022-11-23 07:28] LABS: ALBUMIN 2.1 g/dL (3.5-5.0); ALBUMIN/GLOBULIN RATIO 0.5 (0.8-2.0); ANION GAP 15.3 mmol/L (8-16); CALCIUM 9.2 mg/dL (8.4-10.2); CREATININE, SERUM 0.95 mg/dL (0.57-1.11); POTASSIUM 3.3 mmol/L (3.5-5.1)
[2022-11-23] MEDS: INSULIN REGULAR, HUMAN 100 UNIT/1 ML SQ SCH ×4 (07:30→21:00)
[2022-11-23] MEDS: FUROSEMIDE INJ 10 MG/ML 4 ML VIAL IV SCH ×2 (09:50→17:18)
[2022-11-23] MEDS: ISOSORBIDE MONONITRATE 30 MG TAB CR PO SCH (09:51)
[2022-11-23] MEDS: METOPROLOL SUCCINATE 25 MG TAB XL PO SCH ×2 (09:51→20:49)
[2022-11-23] MEDS: MAGNESIUM OXIDE 400 MG TAB PO SCH ×2 (09:51→17:18)
[2022-11-23] MEDS: APIXABAN 5 MG TABLET PO SCH ×2 (09:51→17:18)
[2022-11-23] MEDS: PANTOPRAZOLE SOD 40 MG TABEC PO SCH ×2 (09:52→17:18)
[2022-11-23] MEDS: DOXAZOSIN MESYLATE 2 MG TAB PO SCH (09:52)
[2022-11-23] MEDS: CEFTRIAXONE 2 GM in SODIUM CHLORIDE 0.9% 100 ML IV SCH (17:18)
[2022-11-23] MEDS: ATORVASTATIN 40 MG TAB PO SCH (20:49)
[2022-11-24] VITALS (8 sets, daily range): BP systolic 102–130; BP diastolic 59–70
[2022-11-24] MEDS: ALBUTEROL SULF 0.083% NEB SOLN 3 ML NEB NEB SCH ×6 (02:30→22:10)
[2022-11-24] MEDS: IPRATROPIUM BROMIDE 0.02% 2.5 ML NEB NEB SCH ×6 (02:30→22:10)
[2022-11-24] MEDS: NYSTATIN SUSPENSION 5 ML UDC PO SCH ×2 (05:57→09:00)
[2022-11-24] MEDS: LEVOTHYROXINE SODIUM 100 MCG TAB PO SCH (05:57)
[2022-11-24] MEDS: INSULIN REGULAR, HUMAN 100 UNIT/1 ML SQ SCH ×4 (07:30→21:00)
[2022-11-24] MEDS: APIXABAN 5 MG TABLET PO SCH ×2 (09:03→17:27)
[2022-11-24] MEDS: DOXAZOSIN MESYLATE 2 MG TAB PO SCH (09:03)
[2022-11-24] MEDS: PANTOPRAZOLE SOD 40 MG TABEC PO SCH ×2 (09:03→17:27)
[2022-11-24] MEDS: FUROSEMIDE INJ 10 MG/ML 4 ML VIAL IV SCH (09:04)
[2022-11-24] MEDS: ISOSORBIDE MONONITRATE 30 MG TAB CR PO SCH (09:04)
[2022-11-24] MEDS: MAGNESIUM OXIDE 400 MG TAB PO SCH ×2 (09:04→17:27)
[2022-11-24] MEDS: METOPROLOL SUCCINATE 25 MG TAB XL PO SCH ×2 (09:04→21:01)
[2022-11-24] MEDS: CEFTRIAXONE 2 GM in SODIUM CHLORIDE 0.9% 100 ML IV SCH (17:28)
[2022-11-24] MEDS: TRAMADOL HCL 50 MG TAB PO PRN (17:48)
[2022-11-24] MEDS: ATORVASTATIN 40 MG TAB PO SCH (21:00)
[2022-11-25] VITALS (8 sets, daily range): BP systolic 100–122; BP diastolic 53–68
[2022-11-25] MEDS: ALBUTEROL SULF 0.083% NEB SOLN 3 ML NEB NEB SCH ×6 (01:48→23:30)
[2022-11-25] MEDS: IPRATROPIUM BROMIDE 0.02% 2.5 ML NEB NEB SCH ×6 (01:48→23:30)
[2022-11-25] MEDS: LEVOTHYROXINE SODIUM 100 MCG TAB PO SCH (04:54)
[2022-11-25 06:20] LABS: BASOPHILS % 0.3 % (0.0-1.0); EOSINOPHILS # (AUTO) 0.3 (0.0-0.4); EOSINOPHILS % 2.5 % (0.0-6.0); HEMATOCRIT 31.5 % (34.2-44.1); HEMOGLOBIN 9.8 g/dL (12.0-16.0); LYMPHOCYTES # (AUTO) 0.5 (1.0-3.2); LYMPHOCYTES % 4.7 % (18.0-39.1); MEAN CORPUSCULAR HEMOGLOBIN 25.5 pg (28-32); MEAN CORPUSCULAR HGB CONC 31.1 g/dL (31-35); MONOCYTES # (AUTO) 0.5 (0.2-0.8); MONOCYTES % 4.4 % (4.4-11.3); NEUTROPHILS # (AUTO) 9.4 (2.1-6.9); NEUTROPHILS % 84.6 % (38.7-80.0); PLATELET COUNT 352 x10e3/uL (140-360); RED BLOOD COUNT 3.84 x10e6/uL (3.6-5.1); RED CELL DISTRIBUTION WIDTH 19.6 % (11.7-14.4)
[2022-11-25 06:39] LABS: ANION GAP 11.3 mmol/L (8-16); CALCIUM 9.1 mg/dL (8.4-10.2); CREATININE, SERUM 0.76 mg/dL (0.57-1.11); POTASSIUM 3.3 mmol/L (3.5-5.1)
[2022-11-25] MEDS: INSULIN REGULAR, HUMAN 100 UNIT/1 ML SQ SCH ×4 (07:30→21:00)
[2022-11-25] MEDS: FUROSEMIDE INJ 10 MG/ML 4 ML VIAL IV SCH (09:14)
[2022-11-25] MEDS: MAGNESIUM OXIDE 400 MG TAB PO SCH ×2 (09:14→16:49)
[2022-11-25] MEDS: PANTOPRAZOLE SOD 40 MG TABEC PO SCH ×2 (09:15→16:49)
[2022-11-25] MEDS: APIXABAN 5 MG TABLET PO SCH ×2 (09:15→16:49)
[2022-11-25] MEDS: DOXAZOSIN MESYLATE 2 MG TAB PO SCH (09:15)
[2022-11-25] MEDS: ISOSORBIDE MONONITRATE 30 MG TAB CR PO SCH (09:15)
[2022-11-25] MEDS: METOPROLOL SUCCINATE 25 MG TAB XL PO SCH ×2 (09:16→21:00)
[2022-11-25] MEDS: ACETAMINOPHEN 325 MG TAB PO PRN ×2 (09:21→14:02)
[2022-11-25] MEDS: POTASSIUM CHLORIDE 20 MEQ TAB CR PO PRN (11:53)
[2022-11-25] MEDS ORDERED: SODIUM CHLORIDE 0.9% 250ML 250 ML ONE (15:06)
[2022-11-25] MEDS: CEFTRIAXONE 2 GM in SODIUM CHLORIDE 0.9% 100 ML IV SCH (16:50)
[2022-11-25] MEDS: ATORVASTATIN 40 MG TAB PO SCH (21:00)
[2022-11-26] VITALS (8 sets, daily range): BP systolic 107–134; BP diastolic 57–98
[2022-11-26] MEDS: IPRATROPIUM BROMIDE 0.02% 2.5 ML NEB NEB SCH ×2 (03:25→06:30)
[2022-11-26] MEDS: ALBUTEROL SULF 0.083% NEB SOLN 3 ML NEB NEB SCH ×2 (03:25→06:30)
[2022-11-26] MEDS: ACETAMINOPHEN 325 MG TAB PO PRN ×2 (03:27→08:47)
[2022-11-26] MEDS: LEVOTHYROXINE SODIUM 100 MCG TAB PO SCH (05:44)
[2022-11-26 06:14] LABS: ANION GAP 13.2 mmol/L (8-16); CALCIUM 9.1 mg/dL (8.4-10.2); CREATININE, SERUM 0.78 mg/dL (0.57-1.11); POTASSIUM 3.2 mmol/L (3.5-5.1)
[2022-11-26] MEDS: INSULIN REGULAR, HUMAN 100 UNIT/1 ML SQ SCH ×4 (07:30→20:47)
[2022-11-26] MEDS ORDERED: POTASSIUM CHLORIDE 20 MEQ TAB CR PO ONE (08:45)
[2022-11-26] MEDS: FUROSEMIDE INJ 10 MG/ML 4 ML VIAL IV SCH (08:45)
[2022-11-26] MEDS: DOCUSATE SODIUM 100 MG CAP PO SCH ×2 (08:45→16:25)
[2022-11-26] MEDS: APIXABAN 5 MG TABLET PO SCH ×2 (08:45→16:25)
[2022-11-26] MEDS: DOXAZOSIN MESYLATE 2 MG TAB PO SCH (08:46)
[2022-11-26] MEDS: MAGNESIUM OXIDE 400 MG TAB PO SCH ×2 (08:50→16:59)
[2022-11-26] MEDS: PANTOPRAZOLE SOD 40 MG TABEC PO SCH ×2 (08:50→16:25)
[2022-11-26] MEDS: ISOSORBIDE MONONITRATE 30 MG TAB CR PO SCH (08:50)
[2022-11-26] MEDS: MAALOX/LIDOCAINE/BENADRYL/NYST 30 ML BTL PO PRN (08:51)
[2022-11-26] MEDS: METOPROLOL SUCCINATE 25 MG TAB XL PO SCH ×2 (08:51→20:42)
[2022-11-26] MEDS ORDERED: IPRATROPIUM BROMIDE 0.02% 2.5 ML NEB NEB SCH (12:00)
[2022-11-26] MEDS ORDERED: ALBUTEROL SULF 0.083% NEB SOLN 3 ML NEB NEB SCH (12:00)
[2022-11-26] MEDS: ALBUTEROL/IPRATROPIUM 3 ML NEB INH SCH ×2 (12:30→19:00)
[2022-11-26] MEDS: MUPIROCIN 2% OINT 22 GM TUBE TOP SCH (16:17)
[2022-11-26] MEDS: CEFTRIAXONE 2 GM in SODIUM CHLORIDE 0.9% 100 ML IV SCH (16:24)
[2022-11-26] MEDS: ATORVASTATIN 40 MG TAB PO SCH (20:41)
[2022-11-27] VITALS (7 sets, daily range): BP systolic 110–136; BP diastolic 54–70
[2022-11-27] MEDS: ALBUTEROL/IPRATROPIUM 3 ML NEB INH SCH ×4 (01:20→19:20)
[2022-11-27] MEDS: LEVOTHYROXINE SODIUM 100 MCG TAB PO SCH (05:19)
[2022-11-27] MEDS: INSULIN REGULAR, HUMAN 100 UNIT/1 ML SQ SCH ×4 (07:30→21:00)
[2022-11-27] MEDS: DOCUSATE SODIUM 100 MG CAP PO SCH ×2 (09:00→16:29)
[2022-11-27] MEDS: DOXAZOSIN MESYLATE 2 MG TAB PO SCH (09:03)
[2022-11-27] MEDS: APIXABAN 5 MG TABLET PO SCH ×2 (09:03→16:29)
[2022-11-27] MEDS: FUROSEMIDE 40 MG TAB PO SCH (09:03)
[2022-11-27] MEDS: MAGNESIUM OXIDE 400 MG TAB PO SCH ×2 (09:03→16:29)
[2022-11-27] MEDS: PANTOPRAZOLE SOD 40 MG TABEC PO SCH ×2 (09:03→16:29)
[2022-11-27] MEDS: ISOSORBIDE MONONITRATE 30 MG TAB CR PO SCH (09:04)
[2022-11-27] MEDS: MUPIROCIN 2% OINT 22 GM TUBE TOP SCH (09:04)
[2022-11-27] MEDS: METOPROLOL SUCCINATE 25 MG TAB XL PO SCH ×2 (09:04→21:37)
[2022-11-27] MEDS: ACETAMINOPHEN 325 MG TAB PO PRN ×2 (12:06→18:36)
[2022-11-27] MEDS: CEFTRIAXONE 2 GM in SODIUM CHLORIDE 0.9% 100 ML IV SCH (16:28)
[2022-11-27] MEDS: ATORVASTATIN 40 MG TAB PO SCH (21:38)
[2022-11-28] VITALS (7 sets, daily range): BP systolic 109–144; BP diastolic 57–70
[2022-11-28] MEDS: ALBUTEROL/IPRATROPIUM 3 ML NEB INH SCH ×4 (01:00→19:30)
[2022-11-28] MEDS: LEVOTHYROXINE SODIUM 100 MCG TAB PO SCH (06:23)
[2022-11-28] MEDS: INSULIN REGULAR, HUMAN 100 UNIT/1 ML SQ SCH ×4 (07:30→21:00)
[2022-11-28] MEDS: DOCUSATE SODIUM 100 MG CAP PO SCH ×2 (09:00→17:00)
[2022-11-28] MEDS: DOXAZOSIN MESYLATE 2 MG TAB PO SCH (09:29)
[2022-11-28] MEDS: METOPROLOL SUCCINATE 25 MG TAB XL PO SCH ×2 (09:29→21:11)
[2022-11-28] MEDS: FUROSEMIDE 40 MG TAB PO SCH (09:29)
[2022-11-28] MEDS: ISOSORBIDE MONONITRATE 30 MG TAB CR PO SCH (09:30)
[2022-11-28] MEDS: MUPIROCIN 2% OINT 22 GM TUBE TOP SCH (09:30)
[2022-11-28] MEDS: PANTOPRAZOLE SOD 40 MG TABEC PO SCH ×2 (09:30→17:17)
[2022-11-28] MEDS: MAGNESIUM OXIDE 400 MG TAB PO SCH ×2 (09:30→17:17)
[2022-11-28] MEDS: APIXABAN 5 MG TABLET PO SCH ×2 (09:30→17:17)
[2022-11-28] MEDS: ACETAMINOPHEN 325 MG TAB PO PRN ×2 (09:40→21:19)
[2022-11-28] MEDS: CEFTRIAXONE 2 GM in SODIUM CHLORIDE 0.9% 100 ML IV SCH (17:17)
[2022-11-28] MEDS: METHOCARBAMOL 750 MG TAB PO PRN (21:19)
[2022-11-29] VITALS (8 sets, daily range): BP systolic 118–143; BP diastolic 53–69
[2022-11-29] MEDS: ALBUTEROL/IPRATROPIUM 3 ML NEB INH SCH ×4 (00:10→19:35)
[2022-11-29] MEDS: LEVOTHYROXINE SODIUM 100 MCG TAB PO SCH (05:18)
[2022-11-29] MEDS: INSULIN REGULAR, HUMAN 100 UNIT/1 ML SQ SCH ×4 (07:30→20:49)
[2022-11-29] MEDS: MAGNESIUM OXIDE 400 MG TAB PO SCH ×2 (08:45→17:37)
[2022-11-29] MEDS: PANTOPRAZOLE SOD 40 MG TABEC PO SCH ×2 (08:45→17:37)
[2022-11-29] MEDS: DOXAZOSIN MESYLATE 2 MG TAB PO SCH (08:45)
[2022-11-29] MEDS: DOCUSATE SODIUM 100 MG CAP PO SCH ×3 (08:45→17:00)
[2022-11-29] MEDS: FUROSEMIDE 40 MG TAB PO SCH (08:46)
[2022-11-29] MEDS: METOPROLOL SUCCINATE 25 MG TAB XL PO SCH ×2 (08:46→20:48)
[2022-11-29] MEDS: APIXABAN 5 MG TABLET PO SCH ×2 (08:46→17:37)
[2022-11-29] MEDS: MUPIROCIN 2% OINT 22 GM TUBE TOP SCH (08:47)
[2022-11-29] MEDS: ISOSORBIDE MONONITRATE 30 MG TAB CR PO SCH (08:47)
[2022-11-29] MEDS: CEFTRIAXONE 2 GM in SODIUM CHLORIDE 0.9% 100 ML IV SCH (17:38)
[2022-11-30] VITALS (8 sets, daily range): BP systolic 117–162; BP diastolic 57–90
[2022-11-30] MEDS: ALBUTEROL/IPRATROPIUM 3 ML NEB INH SCH ×4 (00:30→19:05)
[2022-11-30] MEDS: METHOCARBAMOL 750 MG TAB PO PRN ×2 (01:25→22:15)
[2022-11-30] MEDS: ACETAMINOPHEN 325 MG TAB PO PRN ×3 (01:25→22:15)
[2022-11-30] MEDS: LEVOTHYROXINE SODIUM 100 MCG TAB PO SCH (05:27)
[2022-11-30 05:44] LABS: BASOPHILS # (AUTO) 0.1 (0.0-0.1); BASOPHILS % 0.9 % (0.0-1.0); EOSINOPHILS # (AUTO) 0.2 (0.0-0.4); EOSINOPHILS % 2.8 % (0.0-6.0); HEMATOCRIT 31.9 % (34.2-44.1); LYMPHOCYTES # (AUTO) 0.8 (1.0-3.2); LYMPHOCYTES % 11.1 % (18.0-39.1); MEAN CORPUSCULAR HEMOGLOBIN 25.8 pg (28-32); MEAN CORPUSCULAR HGB CONC 31.3 g/dL (31-35); MEAN CORPUSCULAR VOLUME 82.4 fL (81-99); MONOCYTES # (AUTO) 0.9 (0.2-0.8); MONOCYTES % 12.2 % (4.4-11.3); NEUTROPHILS # (AUTO) 5.1 (2.1-6.9); NEUTROPHILS % 72.3 % (38.7-80.0); PLATELET COUNT 418 x10e3/uL (140-360); RED BLOOD COUNT 3.87 x10e6/uL (3.6-5.1); RED CELL DISTRIBUTION WIDTH 21.8 % (11.7-14.4)
[2022-11-30 06:14] LABS: ALBUMIN 2.4 g/dL (3.5-5.0); ALBUMIN/GLOBULIN RATIO 0.5 (0.8-2.0); ANION GAP 14.3 mmol/L (8-16); CREATININE, SERUM 0.83 mg/dL (0.57-1.11); POTASSIUM 3.3 mmol/L (3.5-5.1)
[2022-11-30] MEDS: INSULIN REGULAR, HUMAN 100 UNIT/1 ML SQ SCH ×4 (07:30→21:00)
[2022-11-30] MEDS: DOCUSATE SODIUM 100 MG CAP PO SCH ×2 (09:00→16:36)
[2022-11-30] MEDS: MUPIROCIN 2% OINT 22 GM TUBE TOP SCH (09:13)
[2022-11-30] MEDS: APIXABAN 5 MG TABLET PO SCH ×2 (09:13→16:36)
[2022-11-30] MEDS: DOXAZOSIN MESYLATE 2 MG TAB PO SCH (09:13)
[2022-11-30] MEDS: ISOSORBIDE MONONITRATE 30 MG TAB CR PO SCH (09:13)
[2022-11-30] MEDS: FUROSEMIDE 40 MG TAB PO SCH (09:14)
[2022-11-30] MEDS: MAGNESIUM OXIDE 400 MG TAB PO SCH ×2 (09:14→16:36)
[2022-11-30] MEDS: METOPROLOL SUCCINATE 25 MG TAB XL PO SCH ×2 (09:14→22:07)
[2022-11-30] MEDS: PANTOPRAZOLE SOD 40 MG TABEC PO SCH ×2 (09:14→16:36)
[2022-11-30] MEDS: CEFTRIAXONE 2 GM in SODIUM CHLORIDE 0.9% 100 ML IV SCH (16:37)
[2022-11-30] MEDS ORDERED: POTASSIUM CHLORIDE 20 MEQ TAB CR PO ONE (20:00)
[2022-12-01] VITALS (7 sets, daily range): BP systolic 106–142; BP diastolic 57–79
[2022-12-01] MEDS: LEVOTHYROXINE SODIUM 100 MCG TAB PO SCH (06:33)
[2022-12-01] MEDS: INSULIN REGULAR, HUMAN 100 UNIT/1 ML SQ SCH ×4 (07:30→19:57)
[2022-12-01] MEDS: ALBUTEROL/IPRATROPIUM 3 ML NEB INH SCH ×4 (07:42→19:00)
[2022-12-01] MEDS: DOCUSATE SODIUM 100 MG CAP PO SCH ×3 (09:00→16:02)
[2022-12-01] MEDS: ISOSORBIDE MONONITRATE 30 MG TAB CR PO SCH (09:32)
[2022-12-01] MEDS: DOXAZOSIN MESYLATE 2 MG TAB PO SCH (09:32)
[2022-12-01] MEDS: APIXABAN 5 MG TABLET PO SCH ×2 (09:32→16:54)
[2022-12-01] MEDS: METOPROLOL SUCCINATE 25 MG TAB XL PO SCH ×2 (09:33→20:48)
[2022-12-01] MEDS: MAGNESIUM OXIDE 400 MG TAB PO SCH ×2 (09:33→16:54)
[2022-12-01] MEDS: PANTOPRAZOLE SOD 40 MG TABEC PO SCH ×2 (09:34→16:54)
[2022-12-01] MEDS: FUROSEMIDE 40 MG TAB PO SCH (09:34)
[2022-12-01] MEDS: MUPIROCIN 2% OINT 22 GM TUBE TOP SCH (09:35)
[2022-12-01] MEDS: ACETAMINOPHEN 325 MG TAB PO PRN ×2 (13:41→20:49)
[2022-12-01] MEDS: CEFTRIAXONE 2 GM in SODIUM CHLORIDE 0.9% 100 ML IV SCH (16:54)
[2022-12-01] MEDS: METHOCARBAMOL 750 MG TAB PO PRN (20:49)
[2022-12-02] VITALS: BP 121/63
[2022-12-02] MEDS: ALBUTEROL/IPRATROPIUM 3 ML NEB INH SCH ×3 (01:00→13:00)
[2022-12-02] MEDS: LEVOTHYROXINE SODIUM 100 MCG TAB PO SCH (06:47)
[2022-12-02] MEDS: INSULIN REGULAR, HUMAN 100 UNIT/1 ML SQ SCH ×2 (07:30→11:30)
[2022-12-02 08:00] VITALS: BP 123/59
[2022-12-02 08:18] VITALS: BP 139/78
[2022-12-02] MEDS: DOXAZOSIN MESYLATE 2 MG TAB PO SCH (09:02)
[2022-12-02] MEDS: ISOSORBIDE MONONITRATE 30 MG TAB CR PO SCH (09:02)
[2022-12-02] MEDS: APIXABAN 5 MG TABLET PO SCH (09:02)
[2022-12-02] MEDS: PANTOPRAZOLE SOD 40 MG TABEC PO SCH (09:02)
[2022-12-02] MEDS: DOCUSATE SODIUM 100 MG CAP PO SCH (09:02)
[2022-12-02] MEDS: FUROSEMIDE 40 MG TAB PO SCH (09:03)
[2022-12-02] MEDS: METOPROLOL SUCCINATE 25 MG TAB XL PO SCH (09:04)
[2022-12-02] MEDS: MUPIROCIN 2% OINT 22 GM TUBE TOP SCH (09:04)
[2022-12-02] MEDS: MAGNESIUM OXIDE 400 MG TAB PO SCH (09:11)
[2022-12-02 11:46] VITALS: BP 123/59
[2022-12-02] MEDS ORDERED: AUGMENTIN600 MG/5 M PO (14:40)
[2022-12-02] MEDS ORDERED: IPRAT-ALBUT 0.5-3 ML INH (15:01)
[2022-12-02] MEDS ORDERED: POTASSIUM CHLO20 ME1 PO (15:06)
[2022-12-02] MEDS ORDERED: ONDANSETRON ODT4 MG PO (15:08)
[2022-12-02] MEDS ORDERED: METOPROLOL SUCC25 MG PO (15:21)
== END 2022-12-02 16:15 | disposition home or self-care (01) | DRG 871 ==
LOC: ER 16:26 → ERHOLD 19:08 → MED/SURG2 11-16 14:25
PROVIDERS: ADMIT Family Medicine; ATTEND Family Medicine
PROC: 5A0935A Assistance with Respiratory Ventilation, Less than 24 Consecutive Hours, High Flow/Velocity Cannula (ICD-10-PCS; principal; 2022-12-01)
DX: A41.9 Sepsis, unspecified organism (principal); I50.23 Acute on chronic systolic (congestive) heart failure; J18.9 Pneumonia, unspecified organism; J96.01 Acute respiratory failure with hypoxia; Z68.41 Body mass index [BMI] 40.0-44.9, adult; I13.0 Hypertensive heart and chronic kidney disease with heart failure and stage 1 through stage 4 chronic kidney disease, or unspecified chronic kidney disease; N17.9 Acute kidney failure, unspecified; I47.20 Ventricular tachycardia, unspecified; E66.9 Obesity, unspecified; I25.10 Atherosclerotic heart disease of native coronary artery without angina pectoris; N18.9 Chronic kidney disease, unspecified; D64.9 Anemia, unspecified; E78.5 Hyperlipidemia, unspecified; G35 Multiple sclerosis; G47.30 Sleep apnea, unspecified; K57.90 Diverticulosis of intestine, part unspecified, without perforation or abscess without bleeding; M85.80 Other specified disorders of bone density and structure, unspecified site; R65.20 Severe sepsis without septic shock; E11.22 Type 2 diabetes mellitus with diabetic chronic kidney disease; J84.10 Pulmonary fibrosis, unspecified; I48.0 Paroxysmal atrial fibrillation; B96.3 Hemophilus influenzae [H. influenzae] as the cause of diseases classified elsewhere; Z20.822 Contact with and (suspected) exposure to COVID-19; Z95.810 Presence of automatic (implantable) cardiac defibrillator; Z90.49 Acquired absence of other specified parts of digestive tract; Z86.718 Personal history of other venous thrombosis and embolism; Z86.711 Personal history of pulmonary embolism; Z79.01 Long term (current) use of anticoagulants; Z95.5 Presence of coronary angioplasty implant and graft
CPT/HCPCS: 36415; 36600; 71045; 71046; 71250; 74230; 80048; 80053; 80202; 81001; 82805; 82948; 83540; 83605; 83735; 83880; 84443; 84466; 84484; 85025; 86021; 86039; 87040; 87071; 87077; 87086; 87205; 93005; 93306; 93312; 93320; 93325; 94640; 94660; 94799; 96372; 99252; 99285; J0696; J1650; J1756; J1940; J2250; J2543; J2920; J2930; J3370; J3475; J3480; J7030; J7050